=== PATIENT | female | born 1995 | race Caucasian/White ===

== ENCOUNTER 2017-12-23 08:34 | Emergency (ER) | payer OTHER ==
[~2017-12-23] VITALS: Ht 167.6 cm; Wt 52.4 kg
[2017-12-23 08:35] VITALS: BP 114/71
--- NOTE | 2017-12-23 08:40 | NUR ---
PT AMBULATES TO BED 10
--- NOTE | 2017-12-23 08:45 | NUR ---
PATIENT PRESENTS TO ED WITH C/O SORE THROAT 6/10 WORSE AT NIGHT X 6 DAYS; TOOK IBUPROFEN AT 0630 HX; DENIES RX; DENIES DENIES N/V/D; SKIN IS PINK/WARM/DRY; AAOX4 WITH EVEN AND STEADY GAIT; LUNGS CLEAR BL; HR EVEN AND REGULAR; PT DENIES ANY FEVER, CP, SOB, OR COUGH AT THIS TIME; PATIENT STATES PAIN OF 6/10 AT THIS TIME; VSS; PATIENT POSITIONED FOR COMFORT; HOB ELEVATED; BEDRAILS UP X2; BED DOWN. ER MD MADE AWARE OF PT STATUS.
--- NOTE | 2017-12-23 08:46 | NUR ---
DR SIERRA EVALUATING AAO PT WITH MOTHER AT BEDSIDE
--- NOTE | 2017-12-23 08:59 | NUR ---
STREP SWAB SPECIMEN SENT TO LAB.
[2017-12-23 09:40] VITALS: BP 105/61
--- NOTE | 2017-12-23 09:40 | NUR ---
Patient discharged with v/s stable. Written and verbal after care instructions given and explained. Patient verbalized understanding. Ambulatory with steady gait. All questions addressed prior to discharge. Advised to follow up with PMD.
== END 2017-12-23 09:40 | disposition home or self-care (01) ==
LOC: MED 08:34
DX: J02.9 Acute pharyngitis, unspecified (principal)
CPT/HCPCS: 87081; 99284

== ENCOUNTER 2024-03-22 21:05 | Emergency (ER) | payer OTHER ==
[~2024-03-22] VITALS: Ht 167.6 cm; Wt 65.8 kg
[2024-03-22 21:22] VITALS: BP 131/79; PULSE 96; RESP 14; TEMP 99.3; O2SAT 98
[2024-03-22] MEDS ORDERED: BPM/480S48 PO (21:49)
[2024-03-22] MEDS ORDERED: AMOX1TAB8 PO (21:49)
[2024-03-22 21:53] VITALS: BP 131/79; PULSE 96; RESP 14; TEMP 99.3; O2SAT 98
[2024-03-22 22:08] LABS: FLU A ANTIGEN negative (NEGATIVE); FLU B ANTIGEN NEGATIVE (NEGATIVE)
== END 2024-03-22 21:53 | disposition home or self-care (01) ==
LOC: MED 21:05
DX: J18.9 Pneumonia, unspecified organism (principal); Z20.822 Contact with and (suspected) exposure to COVID-19; Z79.899 Other long term (current) drug therapy
CPT/HCPCS: 71045; 99284